=== PATIENT | male | born 1955 | race African-American/Black ===

== ENCOUNTER 2016-09-24 17:49 | Inpatient (IN) ==
[2016-09-24] MEDS ORDERED: ONDANSETRON 4 MG/2 ML VIAL IV STA (19:02)
[2016-09-24] MEDS ORDERED: methylPREDNISolone SOD SUC 125 MG/2 ML VIAL IV STA (19:02)
[2016-09-24] MEDS ORDERED: cefTRIAXone 1,000 MG in SODIUM CHLORIDE 0.9% 100 ML IV STA (19:02)
[2016-09-24] MEDS ORDERED: MORPHINE 2 MG/1 ML SYRINGE IV STA (19:02)
[2016-09-24 19:17] LABS: Basophils % 0.4 % (0.0-0.8); Eosinophils # 0.5 10*3/uL (0.0-0.87); Eosinophils % 5.5 % (0.00-10.9); Hematocrit 42.1 VOL% (42.0-52.0); Hemoglobin 14.2 GM/DL (14.0-18.0); Immature Granulocytes % 0.3 %; Immature Granulocytes Absolute 0.03 #; Lymphocytes # 1.4 10*3/uL (1.4-4.0); Lymphocytes % 14.3 % (21.2-54.2); Mean Corpuscular HGB Conc 33.7 GM/DL (32-36); Mean Corpuscular Hemoglobin 30 PG (27-34); Mean Corpuscular Volume 89.8 FL (87-102); Mean Platelet Volume 8.9 FL (9.6-12.0); Monocytes # 0.6 10*3/uL (0.11-0.8); Monocytes % 6.6 % (1.7-12.7); Neutrophils # 6.9 10*3/uL (1.4-7.4); Neutrophils % 72.9 % (38.7-73.9); Platelet Count 366 T/CUMM (130-400); Red Blood Count 4.69 MC/CUMM (3.8-5.5); Red Cell Distribution Width 11.5 % (9.3-17.3); White Blood Count 9.5 T/CUMM (4-12)
--- NOTE | 2016-09-24 19:17 | Emergency Department Note ---
Zeferino Vogel Manpreet, am scribing for, and in the presence of, Robert James MD 19:12. Erika Vogel Charles R, MD, personally performed the services described in this documentation, ascribed by Marck Mcgarry in my presence, and it is both accurate and complete 917 . Arrival - Arrival Chief Complaint: Nausea/Vomiting/Diarrhea Stated Complaint: SOB/diarrhea ED Nursing Triage Note: reports diarrhea and having some congestion.. pt takes chemo for lung cancer and had treatment last week. Mode of Arrival: Wheelchair Time Seen by Provider: 09/24/16 18:47 - History of Present Illness HPI Narrative: Pt is a 61 y/o male with PMHx of HTN and stage IV lung CA, who reports to the ED with CC of N/V/D, SOB, and Abd pain at since an unspecified time. Pt had chemotherapy for his lung CA last week with Dr. Garrison. Pt states he has had trouble breathing which has been getting worse. Pt reports smoking tobacco every day. Pt states he has also lost 3 pounds since last week. No other complaints/pains reported to ED. Consistency: constant Severity: moderate Severity scale (1-10): 4 Allergies/Adverse Reactions: Allergies Allergy/AdvReac Type Severity Reaction Status Date / Time No Known Allergies Allergy Verified 07/27/15 14:41 Home Medications: Home Medications Medication Instructions Recorded Confirmed Type Albuterol Sulfate [Ventolin HFA] 2 puff INH Q4-6H PRN 02/16/15 09/24/16 History HYDROcodone/ACETAMIN 10-325 [[place] 1 tablet PO Q4H PRN 02/16/15 09/24/16 History 10-325] Magnesium Oxide [Magox 400] 400 mg PO DAILY 02/16/15 09/24/16 History Diltiazem Cd Cap [Cardizem CD] 120 mg PO BID #60 capsule 07/31/15 09/24/16 Rx Apixaban [Eliquis] 5 mg PO BID 03/16/16 09/24/16 History Digoxin Tab [Lanoxin Tab] 0.125 mg PO DAILY 03/16/16 09/24/16 History Metoprolol Tartrate 50 mg PO DAILY 03/16/16 09/24/16 History Review of System - Review of System 12 point system: reviewed and no additional remarkable complaints except as stated - Review of System Constitutional: Absent: diaphoresis, fever Respiratory: Present: respiratory distress Gastrointestinal: Present: abdominal pain, nausea, vomiting, diarrhea. Absent: hematochezia Genitourinary male: Absent: dysuria, hematuria Musculoskeletal: Absent: arm pain, back pain, lower back pain, neck pain Neurological: Absent: headache Medical,Surgical,& Family Hx - Medical History Cardio: History of: Cardiac Dysrhythmia (a-fib), Hypertension Respiratory: History of: Lung Cancer (stage IV Sq Cell CA of lung) - Surgical History Thoracic Surgeries: Patient denies;: Organ Transplant Neurologic Surgeries: Patient denies: Neurologic Surgery - Social History Smoking Status: Current every day smoker Exam Vital Signs: Vital Signs Temperature 99.3 F 09/24/16 18:46 Pulse Rate 99 H 09/24/16 18:46 Respiratory Rate 16 09/24/16 18:46 Blood Pressure 112/72 09/24/16 18:46 O2 Sat by Pulse Oximetry 100 09/24/16 17:51 - General General appearance: alert, in no apparent distress - Head Head exam: Present: atraumatic, other (Temporal Wasting) - Eye Eye exam: Present: normal appearance, PERRL, EOMI - ENT ENT exam: Present: normal exam, normal oropharynx, mucous membranes moist, TM's normal bilaterally - Neck Neck exam: Present: normal inspection, full ROM, trachea midline. Absent: tenderness - Chest Chest inspection: Present: normal inspection, symmetric chest wall rise. Absent : tenderness - Respiratory Respiratory exam: Present: accessory muscle use, wheezes, other (Decreased breath sounds on right side). Absent: normal lung sounds bilaterally - Cardiovascular Cardiovascular exam: Present: regular rate, normal rhythm, normal heart sounds - Abdominal Exam Abdominal exam: Present: soft, diminished bowel sounds. Absent: distention, tenderness - Extremities Exam Extremities exam: Present: normal inspection, full ROM. Absent: tenderness, pedal edema - Back Exam Back exam: Present: normal inspection, full ROM. Absent: tenderness - Neurological Exam Neurological exam: Present: alert, oriented X3, CN II-XII intact, reflexes normal - Psychiatric Psychiatric exam: Present: normal affect - Skin Skin exam: Present: warm, dry, intact. Absent: rash, pallor Course - Reevaluation(s) Reevaluation #1: Patient symptoms have improved blood pressure is much better chest pain is gone shortness breath is markedly improved patient has no nausea vomiting since she has been here Time: 21:57 - Consultations Consultation #1: Dr. Jameson will admit patient for Dr. Garrison said the put him on the cancer floor no telemetry bed needed Time: 21:54 Results - Labs CBC & BMP: 09/24/16 18:39 09/24/16 18:39 Lab Results: I have reviewed the patients labs Labs: Laboratory Tests 09/24/16 09/24/16 18:39 18:39 WBC 9.5 RBC 4.69 Hgb 14.2 Hct 42.1 MCV 89.8 MPV 8.9 L Lymph % (Auto) 14.3 L INR 1.2 PT Patient/Control Mix 12.7 Laboratory Tests 09/24/16 18:39 Sodium 132 L Potassium 3.4 L Chloride 96 L Carbon Dioxide 28 BUN 45 H BUN/Creatinine Ratio 34.00 H Glucose 119 H Troponin I 0.088 H Total Protein 5.9 L Albumin 2.9 L Albumin/Globulin Ratio 0.9 L Laboratory Tests 09/24/16 09/24/16 09/24/16 18:39 18:39 18:39 WBC 9.5 RBC 4.69 Hgb 14.2 Hct 42.1 MCV 89.8 MPV 8.9 L Lymph % (Auto) 14.3 L INR 1.2 PT Patient/Control Mix 12.7 Sodium 132 L Potassium 3.4 L Chloride 96 L BUN 45 H BUN/Creatinine Ratio 34.00 H Glucose 119 H Troponin I 0.088 H B-Natriuretic Peptide Total Protein 5.9 L Albumin 2.9 L Albumin/Globulin Ratio 0.9 L Digoxin 09/24/16 09/24/16 18:39 18:39 WBC RBC Hgb Hct MCV MPV Lymph % (Auto) INR PT Patient/Control Mix Sodium Potassium Chloride BUN BUN/Creatinine Ratio Glucose Troponin I B-Natriuretic Peptide 45 Total Protein Albumin Albumin/Globulin Ratio Digoxin 0.60 L Laboratory Tests 09/24/16 18:39 Amylase 161 H Lipase 500.0 H - Diagnostic Findings Procedure: Chest x-ray: report reviewed by me (No acute cardiopulmonary process. Resolution of the airspace opacity within the left infrahilar region. Similar apperaence of the probable known lung carcinoma in the right lung apex and and diffuse interstitial scarring.), CT Abdomen and Pelvis: pending, X-ray: report reviewed by me (X-ray Abd: No acute radiographic abnormality in the abdomen.) Disposition Clinical Impression: Gastroenteritis, COPD (chronic obstructive pulmonary disease), Squamous cell carcinoma of lung, stage IV, Drug-induced nausea and vomiting, Pancreatitis, Atypical chest pain, Elevated troponin Case discussed with: patient Disposition: Still a Patient Condition: Stable Time of Disposition: 21:57
[2016-09-24 19:22] LABS: INR 1.2; PT Patient Result 12.7 SECS
[2016-09-24] MEDS ORDERED: cefTRIAXone 1,000 MG VIAL ONE (19:29)
[2016-09-24] MEDS ORDERED: ONDANSETRON 4 MG/2 ML VIAL ONE (19:29)
[2016-09-24 19:30] LABS: Albumin 2.9 G/DL (3.4-5.0); Bilirubin,Total 0.7 MG/DL (0.2-1.0); Calcium 8.7 MG/DL (8.5-10.1); Magnesium 2.1 MG/DL (1.8-2.4); Osmolality,Calculated 276.5 MOS/KG (273-304); Potassium 3.4 MMOL/L (3.5-5.1); Total Protein 5.9 G/DL (6.4-8.3)
[2016-09-24] MEDS ORDERED: MORPHINE 2 MG/1 ML SYRINGE ONE (19:30)
[2016-09-24] MEDS ORDERED: methylPREDNISolone SOD SUC 125 MG/2 ML VIAL ONE (19:30)
[2016-09-24 19:37] LABS: Troponin I Only 0.088 NG/ML (0.00-0.045)
--- NOTE | 2016-09-24 19:43 | EKG Report ---
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
--- NOTE | 2016-09-24 20:49 | XRay Report ---
Exam: XR chest 1V portable Indication: History of lung cancer, Shortness of breath Comparison study: 09/06/2015 chest radiograph and 08/06/[address] Findings: Lungs are mildly hyperexpanded with central interstitial prominence suggesting a degree of underlying scarring. Right chest Mediport is noted in position. The Mediport overlies a focal lesion, likely representing the patient's known lung cancer, which appears grossly unchanged from prior. The heart, mediastinum and bony structures are stable from prior. There is no focal consolidation, pneumothorax or pleural effusion identified. The area of focal consolidation previously noted within the lingula/left infrahilar region is no longer visualized. Impression: No acute cardiopulmonary process. Resolution of the airspace opacity within the left infrahilar region. Similar appearance of probable known lung carcinoma in the right lung apex and diffuse interstitial scarring. PROCEDURE INTERPRETED AT [facility] DEPARTMENT OF RADIOLOGY Final Report Signed by: Rylan Roman
--- NOTE | 2016-09-24 20:55 | XRay Report ---
XR abdomen, 2 views Clinical Information: Abdominal Pain nausea, vomiting Comparison: 09/06/2015 Findings: Bowel gas pattern is nonspecific and within normal limits. No abnormally dilated small bowel loops are identified to suggest obstruction. There is no free air identified. Scattered fecal material is noted throughout colon, which is otherwise nondilated. No abnormal focal soft tissue masses or calcific densities are identified in the abdomen or pelvis. Lung bases appear predominantly clear. There is no acute osseous abnormality. No suspicious osseous lesions are identified. Mild degenerative changes of the lumbosacral junction are suspected. Impression: No acute radiographic abnormality in the abdomen. PROCEDURE INTERPRETED AT [facility] DEPARTMENT OF RADIOLOGY Final Report Signed by: Rylan Roman
[2016-09-24 21:02] LABS: Apearance,Urine CLEAR (Clear); Bilirubin,Urine Negative (Negative); Blood, Urine Negative (Negative); Glucose,Urine (UA) Negative (Negative); Granular Casts,Urine 8 /LPF (0-1); Hyaline Casts,Urine 15 /LPF (0-3); Ketones,Urine Negative (Negative); Mucus,Urine Few /LPF (Occasional); Nitrite,Urine Negative (Negative); Protein,Urine 30 MG/DL; RBC,Urine 1 /HPF (0-4); Urine Color Amber (Yellow); Urine Specific Gravity 1.028 (1.001-1.035); Urine Urobilinogen < 2.0 EU/DL (0.2-1.0); WBC,Urine 2 /HPF (0-6)
[2016-09-24 21:28] LABS: Troponin I Only 0.101 NG/ML (0.00-0.045)
[2016-09-24] MEDS ORDERED: ACETAMINOPHEN 325 MG TABLET PO PRN (22:43)
[2016-09-24] MEDS ORDERED: chlorproMAZINE 25 MG TABLET PO PRN (22:43)
[2016-09-24] MEDS ORDERED: MYLANTA/LIDO VISC 2:1 300 ML BOTTLE SWISH/SPIT PRN (22:43)
[2016-09-24] MEDS ORDERED: diphenhydrAMINE CAP 25 MG CAPSULE PO PRN (22:43)
[2016-09-24] MEDS ORDERED: MYLANTA/LIDO VISC 2:1 300 ML BOTTLE SWISH/SWAL PRN (22:43)
[2016-09-24] MEDS ORDERED: PROMETHAZINE INJ 25 MG in SODIUM CHLORIDE 0.9% 50 ML IV PRN (22:43)
[2016-09-24] MEDS ORDERED: LACTULOSE 20 GM/30 ML UDCUP PO PRN (22:43)
[2016-09-24] MEDS ORDERED: LOPERAMIDE 2 MG CAPSULE PO PRN ×2 (22:43)
[2016-09-24] MEDS ORDERED: traMADol 50 MG TABLET PO PRN (22:43)
[2016-09-24] MEDS ORDERED: ALUMINUM/MAGNES/SIMETH MAX STR 30 ML UDCUP PO PRN (22:43)
[2016-09-24] MEDS ORDERED: ALBUTEROL 2.5 MG/3 ML NEB RESP TX PRN (22:43)
[2016-09-24] MEDS ORDERED: MAGNESIUM HYDROXIDE SUSP 30 ML UDCUP PO PRN (22:43)
[2016-09-24] MEDS ORDERED: BENZTROPINE 2 MG/2 ML AMP IV PRN (22:43)
[2016-09-24] MEDS ORDERED: TEMAZEPAM 7.5 MG CAPSULE PO PRN (22:43)
[2016-09-24] MEDS ORDERED: chlorproMAZINE INJ 25 MG in SODIUM CHLORIDE 0.9% 100 ML IV PRN (22:43)
[2016-09-24] MEDS ORDERED: guaiFENesin 200 MG/10 ML UDCUP PO PRN (22:43)
[2016-09-24] MEDS ORDERED: chlorproMAZINE INJ 50 MG in SODIUM CHLORIDE 0.9% 100 ML IV PRN (22:43)
[2016-09-24] MEDS ORDERED: ONDANSETRON 4 MG/2 ML VIAL IV PRN (22:43)
[2016-09-24] MEDS ORDERED: ALPRAZolam 0.25 MG TABLET PO PRN (22:43)
[2016-09-24] MEDS: SODIUM CHLORIDE 0.9% 1,000 ML IV SCH (23:01)
[2016-09-25 00:05] LABS: Basophils % 0.2 % (0.0-0.8); Eosinophils % 0.2 % (0.00-10.9); Hematocrit 43.4 VOL% (42.0-52.0); Hemoglobin 14.1 GM/DL (14.0-18.0); Immature Granulocytes % 0.5 %; Immature Granulocytes Absolute 0.07 #; Lymphocytes # 0.5 10*3/uL (1.4-4.0); Lymphocytes % 3.4 % (21.2-54.2); Mean Corpuscular HGB Conc 32.5 GM/DL (32-36); Mean Corpuscular Hemoglobin 30 PG (27-34); Mean Corpuscular Volume 93.1 FL (87-102); Mean Platelet Volume 8.6 FL (9.6-12.0); Monocytes # 0.1 10*3/uL (0.11-0.8); Monocytes % 0.7 % (1.7-12.7); Neutrophils # 14.4 10*3/uL (1.4-7.4); Platelet Count 365 T/CUMM (130-400); Red Blood Count 4.66 MC/CUMM (3.8-5.5); Red Cell Distribution Width 11.7 % (9.3-17.3); White Blood Count 15.1 T/CUMM (4-12)
[2016-09-25 00:21] LABS: Albumin 2.8 G/DL (3.4-5.0); Bilirubin,Total 0.6 MG/DL (0.2-1.0); Calcium 8.1 MG/DL (8.5-10.1); Magnesium 2.1 MG/DL (1.8-2.4); Potassium 3.9 MMOL/L (3.5-5.1); Total Protein 5.3 G/DL (6.4-8.3); Uric Acid 4.3 MG/DL (3.5-7.2)
[2016-09-25 00:24] LABS: Troponin I Only 0.105 NG/ML (0.00-0.045)
[2016-09-25 03:44] LABS: Lymphocytes 3 % (20-55); Platelet Estimate Normal; Segmented Neutrophils 97 % (50-85); Total Cells Counted 100
[2016-09-25] MEDS: methylPREDNISolone SOD SUC 40 MG/1 ML VIAL IV SCH ×3 (04:11→20:33)
[2016-09-25] MEDS: ALBUTEROL/IPRATROPIUM 3 ML NEB RESP TX PRN ×2 (07:30→15:41)
[2016-09-25] MEDS ORDERED: PANTOPRAZOLE 40 MG VIAL IV SCH (09:00)
--- NOTE | 2016-09-25 09:38 | Oncology History&Physical ---
Assessment and Plan (1) Squamous cell carcinoma of lung, stage IV Status: Acute Assessment and plan: We will monitor closely for symptoms of pancreatitis. The patient is receiving IV fluids. Analgesia is ordered as needed. He is also receiving intravenous steroids and nebulized albuterol for his wheezing and shortness of breath. Current Visit: Yes History of Present Illness Chief complaint: Diarrhea and weakness History of present illness: Mr. Abdirashid Patton is a 61 year old male With a grade 2 year history of squamous cell carcinoma with bilateral lung involvement. The patient has received chest irradiation previously for painful bony metastasis. He is admitted with shortness of breath wheezing failure to thrive and diarrhea. He has evidence of elevated pancreatic enzymes as well. He is still continuing to smoke. He denies EtOH. Chest x-ray revealed no acute process. His last CT scan from July did show evidence of progression. He has been maintained up to this point on immunotherapy with I believe a every 2 weeks. He has received this medicine for multiple months Home Medications Medication Instructions Recorded Confirmed Type Albuterol Sulfate [Ventolin HFA] 2 puff INH Q4-6H PRN 02/16/15 09/25/16 History HYDROcodone/ACETAMIN 10-325 [[place] 1 tablet PO Q4H PRN 02/16/15 09/25/16 History 10-325] Magnesium Oxide [Magox 400] 400 mg PO DAILY 02/16/15 09/25/16 History Diltiazem Cd Cap [Cardizem CD] 120 mg PO BID #60 capsule 07/31/15 09/25/16 Rx Apixaban [Eliquis] 5 mg PO BID 03/16/16 09/25/16 History Digoxin Tab [Lanoxin Tab] 0.125 mg PO DAILY 03/16/16 09/25/16 History Metoprolol Tartrate 50 mg PO DAILY 03/16/16 09/25/16 History Allergies Allergy/AdvReac Type Severity Reaction Status Date / Time No Known Allergies Allergy Verified 07/27/15 14:41 Medical,Surgical,& Family Hx - Medical History Cardio: History of: Cardiac Dysrhythmia (a-fib), Hypertension Respiratory: History of: Lung Cancer (stage IV Sq Cell CA of lung) Gastrointestinal: History of: GI Problems (diarrhea) - Surgical History Thoracic Surgeries: Patient denies;: Organ Transplant Neurologic Surgeries: Patient denies: Neurologic Surgery Abdominal Surgeries: Patient denies: Abdominal Surgery Reproductive Surgeries: Patient denies;: Genitourinary Surgery - Social History Smoking Status: Current every day smoker Frequency of Alcohol Use: None Type of Drug Use: None - Constitutional Constitutional: Present: malaise, weakness, weight loss. Absent: increased appetite, weight gain - EENT Eye: Absent: diplopia, loss of vision Ears: Absent: tinnitus Nose, mouth and throat: Present: sore throat. Absent: dizziness, dysphagia, epistaxis, vertigo - Cardiovascular Cardiovascular ROS IM: Absent: edema, orthopnea - Respiratory Respiratory: Present: dyspnea, wheezing. Absent: hemoptysis - Gastrointestinal Gastrointestinal: Present: diarrhea - Genitourinary Genitourinary ROS male: Absent: hematuria Exam - Constitutional Vitals: Period Temp Pulse Resp BP Sys/[place] Pulse Ox Last 24 Hr 97.2 F-98 F 66-85 18-20 83-127/56-67 94-99 General appearance: no acute distress, under weight - Head Head Exam: Present: normal inspection, normocephalic, atraumatic - Eye Eye Exam: Present: EOMI. Absent: conjunctival injection, periorbital swelling, scleral icterus Pupils: Present: PERRL - ENT ENT exam: Present: normal external ear exam - Neck Neck exam: Present: normal inspection. Absent: lymphadenopathy, tenderness - Respiratory Respiratory exam: Present: wheezes. Absent: accessory muscle use, decreased breath sounds - Cardiovascular Cardiovascular exam: Present: RRR - GI/Abdominal GI/Abdominal exam: Present: ascites. Absent: distended, guarding - Extremities Exam Extremities exam: Absent: edema - Neurological Exam Neurological exam: Present: alert, oriented X3 Results - Labs CBC & BMP: 09/24/16 23:34 09/24/16 23:34
[2016-09-25] MEDS: DILTIAZEM CD 120 MG CAPSULE PO SCH (09:43)
[2016-09-25] MEDS: METOPROLOL TARTRATE 50 MG TABLET PO SCH (09:43)
[2016-09-25] MEDS: DIGOXIN 0.125 MG TABLET PO SCH (09:43)
[2016-09-25] MEDS: ASPIRIN EC 81 MG TABLET PO SCH (09:44)
[2016-09-25] MEDS: APIXABAN 5 MG TABLET PO SCH ×2 (09:44→20:36)
[2016-09-25] MEDS: MAGNESIUM OXIDE 400 MG TABLET PO SCH (09:44)
--- NOTE | 2016-09-25 11:18 | XRay Report ---
History: Abdominal pain. History of lung cancer Date: 09/25/2016 Study: Flat and erect abdomen Comparison exam: 09/24/2016 There is no evidence of pneumoperitoneum. The bowel gas pattern is nonobstructive without gross mass lesion. Some scattered stool and air are noted in the normal caliber colon. Small fluid levels are noted in large and small bowel on the upright view. No radiopaque calculi are seen. There is moderate lumbar spondylosis. There is some occasional mild degenerative disc narrowing of the lumbar spine. Impression: No acute abdominal process. No adverse interval change PROCEDURE INTERPRETED AT [facility] DEPARTMENT OF RADIOLOGY Final Report Signed by: Dr. Ángela Lewis
--- NOTE | 2016-09-25 12:18 | XRay Report ---
XR chest 2V Indication: Shortness of breath Comparison: 25 Sep 2016 Findings: The heart and mediastinum are stable in size and configuration. Right subclavian Port-A-Cath is unchanged in position. The pulmonary vascularity is normal in caliber. Increased right upper lobe density posterior to Port-A-Cath is slightly more prominent. No other lung infiltrates, effusions, pneumothorax or other abnormality is demonstrated. Impression: Slight increased right upper lobe density posterior to the Port-A-Cath when compared to previous exam. CT may be useful to further evaluate this area. PROCEDURE INTERPRETED AT [facility] DEPARTMENT OF RADIOLOGY Final Report Signed by: Dr. Dax Garcia
[2016-09-25] MEDS: SODIUM CHLORIDE 0.9% 1,000 ML IV SCH (12:23)
[2016-09-26] MEDS: SODIUM CHLORIDE 0.9% 1,000 ML IV SCH ×2 (00:50→14:12)
[2016-09-26] MEDS: DILTIAZEM CD 120 MG CAPSULE PO SCH ×2 (01:45→11:45)
[2016-09-26] MEDS: ALBUTEROL/IPRATROPIUM 3 ML NEB RESP TX PRN ×2 (04:10→13:54)
[2016-09-26] MEDS: methylPREDNISolone SOD SUC 40 MG/1 ML VIAL IV SCH ×3 (04:49→20:20)
--- NOTE | 2016-09-26 06:57 | Oncology Progress Note ---
Assessment and Plan (1) Diarrhea Status: Acute Current Visit: Yes (2) COPD (chronic obstructive pulmonary disease) Status: Acute Current Visit: Yes (3) Squamous cell carcinoma of lung, stage IV Status: Acute Current Visit: Yes (4) Drug-induced nausea and vomiting Status: Acute Current Visit: Yes (5) Pancreatitis Status: Acute Current Visit: Yes Oncology Subjective PN Interval history: Mr. Mendenhall is a 61-year-old black male with advanced lung cancer. He was admitted with failure to thrive and diarrhea. His diarrhea remains persistent. We will try to send this off for C. difficile testing but I will go ahead and place him on twice daily Lomotil. We are using Imodium as needed. I will recheck his electrolytes in the morning. Overall he states his strength has improved with IV fluids. I encouraged him to ambulate around the room and try to sit in the chair today. Exam - Constitutional Vitals: Period Temp Pulse Resp BP Sys/[place] Pulse Ox Last 24 Hr 96.7 F-98.5 F 56-74 16-20 87-116/58-69 93-99 General appearance: normal weight, no acute distress - Head Head Exam: Present: normocephalic, atraumatic - Neck Neck exam: Absent: lymphadenopathy, thyromegaly - Respiratory Respiratory exam: Present: CTAB. Absent: wheezes - Cardiovascular Cardiovascular exam: Present: RRR. Absent: irregular rhythm, JVD - GI/Abdominal GI/Abdominal exam: Present: soft. Absent: ascites, distended, firm, mass - Neurological Exam Neurological exam: Present: alert, oriented X3 Results - Labs CBC & BMP: 09/24/16 23:34 09/24/16 23:34 Lab Results: I have reviewed the past 24 hour labs
[2016-09-26] MEDS: DIPHENOXYLATE/ATROPINE 2.5-0.025 MG TABLET PO SCH ×2 (08:40→20:19)
[2016-09-26] MEDS: ASPIRIN EC 81 MG TABLET PO SCH (08:40)
[2016-09-26] MEDS: APIXABAN 5 MG TABLET PO SCH ×2 (08:41→20:19)
[2016-09-26] MEDS: MAGNESIUM OXIDE 400 MG TABLET PO SCH (08:41)
[2016-09-26] MEDS: DIGOXIN 0.125 MG TABLET PO SCH (11:45)
[2016-09-26] MEDS: METOPROLOL TARTRATE 50 MG TABLET PO SCH (11:45)
[2016-09-27] MEDS: SODIUM CHLORIDE 0.9% 1,000 ML IV SCH (03:39)
[2016-09-27] MEDS: methylPREDNISolone SOD SUC 40 MG/1 ML VIAL IV SCH (03:43)
[2016-09-27] MEDS: DILTIAZEM CD 120 MG CAPSULE PO SCH ×2 (05:33→08:58)
[2016-09-27 05:35] LABS: Albumin 2.3 G/DL (3.4-5.0); Bilirubin,Total 0.8 MG/DL (0.2-1.0); Calcium 7.5 MG/DL (8.5-10.1); Magnesium 2.2 MG/DL (1.8-2.4); Osmolality,Calculated 282.4 MOS/KG (273-304); Potassium 3.6 MMOL/L (3.5-5.1); Total Protein 4.2 G/DL (6.4-8.3)
[2016-09-27] MEDS: ALBUTEROL/IPRATROPIUM 3 ML NEB RESP TX PRN (07:10)
[2016-09-27 08:02] VITALS: BP 121/72
[2016-09-27] MEDS: ASPIRIN EC 81 MG TABLET PO SCH (08:57)
[2016-09-27] MEDS: DIPHENOXYLATE/ATROPINE 2.5-0.025 MG TABLET PO SCH (08:57)
[2016-09-27] MEDS: APIXABAN 5 MG TABLET PO SCH (08:58)
[2016-09-27] MEDS: DIGOXIN 0.125 MG TABLET PO SCH (08:58)
[2016-09-27] MEDS: METOPROLOL TARTRATE 50 MG TABLET PO SCH (08:59)
[2016-09-27] MEDS: MAGNESIUM OXIDE 400 MG TABLET PO SCH (08:59)
--- NOTE | 2016-09-27 09:25 | Discharge Summary ---
Hospital Course - Hospital Course Hospital Course: Mr. Mendenhall is a 61-year-old black male with advanced lung cancer being followed by Dr. Garrison and treated with immunotherapy. He was admitted with lethargy and diarrhea. He was placed on IV fluids and steroids. He improved significantly over the first 2 days of admission and is ready for discharge home today. I will send him home with a steroid taper due to his recent immunotherapy and his current symptoms of diarrhea. Also send him home with Lomotil to take as needed. He will keep his appointments scheduled with Dr. Garrison for routine follow-up. I will defer outpatient oncology care recommendations to his primary oncologist. - Time spent with patient Time with patient DS: Greater than 30 minutes Diagnosis - Discharge Diagnosis (1) Diarrhea Status: Acute (2) COPD (chronic obstructive pulmonary disease) Status: Acute (3) Squamous cell carcinoma of lung, stage IV Status: Acute (4) Drug-induced nausea and vomiting Status: Acute (5) Pancreatitis Status: Acute Specialty Discharge - Follow Up or Referrals Follow up with: Villa Garrison MD [Primary Care Provider] - (Keep previously scheduled appointment with Dr. Garrison.) Discharge Plan - Discharge Data Disposition: Disch To Home/Self Care Condition at Discharge: Stable Discharge Diet: advance to your usual diet Activity: resume usual activities as tolerated Hygiene: no restrictions - Discharge Medications New Diphenoxylate/Atrop 2.5-0.025 [Lomotil Tab] 1 tablet PO Q4HR PRN #15 tablet PRN Reason: Diarrhea Dexamethasone Tab [Decadron Tab] 4 mg PO BID #3 tablet Continue HYDROcodone/ACETAMIN 10-325 [[place] 10-325] 1 tablet PO Q4H PRN PRN Reason: Pain Magnesium Oxide [Magox 400] 400 mg PO DAILY Albuterol Sulfate [Ventolin HFA] 2 puff INH Q4-6H PRN PRN Reason: Shortness Of Breath Diltiazem Cd Cap [Cardizem CD] 120 mg PO BID #60 capsule Metoprolol Tartrate 50 mg PO DAILY Digoxin Tab [Lanoxin Tab] 0.125 mg PO DAILY Apixaban [Eliquis] 5 mg PO BID - Follow Up or Referral Follow Up: Villa Garrison MD [Primary Care Provider] - (Keep previously scheduled appointment with Dr. Garrison.) - Forms/Instructions Exam - Constitutional Vitals: Period Temp Pulse Resp BP Sys/[place] Pulse Ox Last 24 Hr 98 F-99.0 F 57-89 17-20 89-121/55-72 95-100 Discharge Results Labs on day of discharge: Labs from last 24 hours 09/27/16 04:00 Sodium 140 Potassium 3.6 Chloride 111 H Carbon Dioxide 21 Anion Gap 11.6 BUN 25 H Creatinine 0.80 GFR Calculation 106 BUN/Creatinine Ratio 31.00 H Glucose 96 Calculated Osmolality 282.4 Calcium 7.5 L Magnesium 2.2 Total Bilirubin 0.80 AST 26 ALT 43 Alkaline Phosphatase 57 Total Protein 4.2 L Albumin 2.3 L Globulin 1.9 L Albumin/Globulin Ratio 1.2 Preliminary micro results at discharge 09/24/16 23:34 Blood Culture - Preliminary Blood No growth at 1 day DS: Provider Date of admission: 09/24/16 22:01 Primary care physician: Villa Garrison MD Attending physician on admission: Villa Garrison MD Consults: 09/24/16 23:25 Consult to Dietitian [CONS] Routine Reason for Dietitian: Dietary Consult Consult to Pastoral Services [CONS] Routine Comment: Pastoral Screen: Request Envelope Adjuster Visit Discharging clinician: Maciej Mota MD
[2016-09-27] MEDS ORDERED: HEPARIN LOCK FLUSH 500 UNIT/5 ML SYRINGE IV PRN (09:45)
== END 2016-09-27 11:20 | disposition home or self-care (01) | DRG 392 ==
LOC: N.ED 17:49 → N.EDINP 22:01 → N.4E 22:38
PROVIDERS: ADMIT Specialist; ATTEND Specialist

== ENCOUNTER 2016-10-25 16:23 | Inpatient (IN) ==
[2016-10-25] MEDS ORDERED: FUROSEMIDE 100 MG/10 ML VIAL IV STA (17:16)
[2016-10-25] MEDS ORDERED: ONDANSETRON 4 MG/2 ML VIAL IV STA (17:16)
[2016-10-25] MEDS ORDERED: methylPREDNISolone SOD SUC 125 MG/2 ML VIAL IV STA (17:16)
[2016-10-25] MEDS ORDERED: SODIUM CHLORIDE 0.9% 500 ML IV STA (17:16)
[2016-10-25] MEDS ORDERED: ALBUTEROL 2.5 MG/3 ML NEB RESP TX SCH (17:30)
--- NOTE | 2016-10-25 18:02 | EKG Report ---
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
--- NOTE | 2016-10-25 18:08 | Emergency Department Note ---
INadine Emily, am scribing for, and in the presence of, Robert James MD 17: 42. Erika Vogel Charles R, MD, personally performed the services described in this documentation, ascribed by Nadege Mccoy in my presence, and it is both accurate and complete [id number] . Arrival - Arrival Chief Complaint: Upper Respiratory Stated Complaint: foot and sob ED Nursing Triage Note: C/O HAVING SOB SINCE WED., + COUGHING, + CONGESTION , + WHEEZING AT TIME OF TRIAGE., DENIES HAVING INCEASE TEMP., DENIES NAUSEA., ALSO C /O HAVING SWELLING TO THE LEFT LEG SINCE WEDNESDAY, PITTING EDEMA NOTED., PATIENT WEARING COMPRESSION STOCKING AT TIME OF TRIAGE., PATIENT CURRENTLY BEING TREATED FOR LUNG CANCER, LAST CHEMO WAS ONE MONTH AGO Mode of Arrival: Wheelchair Limitations: No Limitations Source: Patient Time Seen by Provider: 10/25/16 16:58 - History of Present Illness HPI Narrative: Pt is a 61 y/o male who came to ED with c/o SOB and pedal edema that started Wednesday and has worsened. Pt notes putting stockings on yesterday on his legs due to pain and swelling. Pt is currently under supervision of Dr. Garrison for Lung CA, in which all tx have been stopped for the moment. His last chemo tx was one month ago. Pt is still smoking and takes Eliquis daily. He denies ETOH usage, "for awhile now." Pt does not have at home O2. Onset (ago): day(s) Consistency: constant Severity: moderate Severity scale (1-10): 7 Quality: aching, fullness Allergies/Adverse Reactions: Allergies Allergy/AdvReac Type Severity Reaction Status Date / Time No Known Allergies Allergy Verified 10/25/16 16:35 Home Medications: Home Medications Medication Instructions Recorded Confirmed Type Albuterol Sulfate [Ventolin HFA] 2 puff INH Q4-6H PRN 02/16/15 10/25/16 History HYDROcodone/ACETAMIN 10-325 [[place] 1 tablet PO Q4H PRN 02/16/15 10/25/16 History 10-325] Magnesium Oxide [Magox 400] 400 mg PO DAILY 02/16/15 10/25/16 History Diltiazem Cd Cap [Cardizem CD] 120 mg PO BID #60 capsule 07/31/15 10/25/16 Rx Apixaban [Eliquis] 5 mg PO BID 03/16/16 10/25/16 History Digoxin Tab [Lanoxin Tab] 0.125 mg PO DAILY 03/16/16 10/25/16 History Metoprolol Tartrate 50 mg PO DAILY 03/16/16 10/25/16 History Diphenoxylate/Atrop 2.5-0.025 1 tablet PO Q4HR PRN #15 tablet 09/27/16 10/25/16 Rx [Lomotil Tab] MDD 4 TABLET/24H fentaNYL 50 MCG/HR PATCH 1 patch TRANSDERM Q3DAY 10/25/16 10/25/16 History [Duragesic 50 Patch] predniSONE TAB [PredniSONE] 40 mg PO DAILY 10/25/16 10/25/16 History Review of System - Review of System 12 point system: reviewed and no additional remarkable complaints except as stated - Review of System Constitutional: Absent: chills, fever Head/Ears/Nose/Throat: Absent: nasal drainage Respiratory: Present: respiratory distress (SOB), wheezing. Absent: cough Cardiovascular: Absent: chest pain Gastrointestinal: Absent: abdominal pain, nausea, vomiting Musculoskeletal: Present: leg pain (both and swelling). Absent: arm pain, back pain, neck pain Skin: Absent: rash Neurological: Absent: headache Medical,Surgical,& Family Hx - Medical History Cardio: History of: Cardiac Dysrhythmia (a-fib), Hypertension Respiratory: History of: Lung Cancer (stage IV Sq Cell CA of lung) Gastrointestinal: History of: GI Problems (diarrhea) - Surgical History Surgical History: noncontributory Thoracic Surgeries: Patient denies;: Organ Transplant Neurologic Surgeries: Patient denies: Neurologic Surgery Abdominal Surgeries: Patient denies: Abdominal Surgery Reproductive Surgeries: Patient denies;: Genitourinary Surgery - Family History Family History: noncontributory - Social History Smoking Status: Current every day smoker Frequency of Alcohol Use: None Type of Drug Use: None Functional capacity: independent ambulation Exam Vital Signs: Vital Signs Temperature 98.3 F 10/25/16 16:31 Pulse Rate 89 10/25/16 18:30 Respiratory Rate 23 10/25/16 18:31 Blood Pressure 82/61 10/25/16 17:00 O2 Sat by Pulse Oximetry 98 10/25/16 18:30 - General General appearance: alert, in no apparent distress, other (thin, emancipated; temporal wasting) - Head Head exam: Present: atraumatic, normocephalic - Eye Eye exam: Present: PERRL, EOMI - Neck Neck exam: Present: full ROM. Absent: tenderness - Chest Chest inspection: Present: symmetric chest wall rise. Absent: tenderness - Respiratory Respiratory exam: Present: rhonchi (coarse), wheezes. Absent: normal lung sounds bilaterally (decreased) - Cardiovascular Cardiovascular exam: Present: regular rate, normal rhythm, normal heart sounds - Abdominal Exam Abdominal exam: Present: soft. Absent: distention (3rd spacing ), tenderness, guarding, rebound - Extremities Exam Extremities exam: Present: full ROM, tenderness (bilateral from knees down), pedal edema (+2). Absent: calf tenderness - Neurological Exam Neurological exam: Present: alert, oriented X3, CN II-XII intact. Absent: motor sensory deficit - Psychiatric Psychiatric exam: Present: normal affect, normal mood - Skin Skin exam: Present: warm, dry Course - Consultations Consultation #1: Dr Meng will admit for Dr Garrison Time: 21:48 Results - Labs CBC & BMP: 10/25/16 17:55 10/25/16 17:55 Lab Results: I have reviewed the patients labs Labs: Laboratory Tests 10/25/16 17:55 RBC 3.70 L Hgb 11.4 L Hct 33.6 L MPV 8.2 L Neut % (Auto) 94.6 H Lymph % (Auto) 3.5 L [place] % (Auto) 1.6 L Neut # (Auto) 8.8 H Lymph # (Auto) 0.3 L Laboratory Tests 10/25/16 17:55 Total Counted 100 Segmented Neutrophils 97 H Lymphocytes 3 L Platelet Estimate Adequate Laboratory Tests 10/25/16 10/25/16 10/25/16 17:55 17:55 17:55 Magnesium 1.1 L Troponin I 0.080 H B-Natriuretic Peptide 115 H Digoxin 0.40 L Laboratory Tests 10/25/16 10/25/16 17:55 17:55 Potassium 3.4 L Anion Gap 15.4 H BUN/Creatinine Ratio 22.00 H Glucose 157 H Calcium 8.1 L Total Protein 5.4 L Albumin 3.2 L Globulin 2.2 L Urine Color Yellow Urine Appearance Clear Urine pH 5.0 Ur Specific [place] 1.017 Urine Protein 30 Urine Blood Negative Urine Urobilinogen < 2.0 H Urine Leukocytes Negative Urine RBC 1 Urine WBC 2 Urine Mucus Occasional - Diagnostic Findings Procedure: Chest x-ray: report reviewed by me (Chronic hyperexpansion of the lungs and emphysematous changes appears similar to prior. No definite acute acute cardiac pulmonary process. Slight worsening of the right upper lobe soft tissue lesion likely representing residual/recurrent malignancy. Correlate with CT of the chest as needed.) Disposition Clinical Impression: COPD (chronic obstructive pulmonary disease), Squamous cell carcinoma of lung, stage IV, Atrial flutter, Hypomagnesemia, Hypotension, Bronchitis Case discussed with: patient Disposition: Still a Patient Condition: Stable Time of Disposition: 21:50
[2016-10-25 18:09] LABS: Basophils % 0.1 % (0.0-0.8); Hematocrit 33.6 VOL% (42.0-52.0); Hemoglobin 11.4 GM/DL (14.0-18.0); Immature Granulocytes % 0.2 %; Immature Granulocytes Absolute 0.02 #; Lymphocytes # 0.3 10*3/uL (1.4-4.0); Lymphocytes % 3.5 % (21.2-54.2); Mean Corpuscular HGB Conc 33.9 GM/DL (32-36); Mean Corpuscular Hemoglobin 31 PG (27-34); Mean Corpuscular Volume 90.8 FL (87-102); Mean Platelet Volume 8.2 FL (9.6-12.0); Monocytes # 0.2 10*3/uL (0.11-0.8); Monocytes % 1.6 % (1.7-12.7); Neutrophils # 8.8 10*3/uL (1.4-7.4); Neutrophils % 94.6 % (38.7-73.9); Platelet Count 225 T/CUMM (130-400); Red Cell Distribution Width 13.1 % (9.3-17.3); White Blood Count 9.3 T/CUMM (4-12)
[2016-10-25] MEDS ORDERED: methylPREDNISolone SOD SUC 125 MG/2 ML VIAL ONE (18:09)
[2016-10-25] MEDS ORDERED: ONDANSETRON 4 MG/2 ML VIAL ONE (18:09)
[2016-10-25] MEDS ORDERED: FUROSEMIDE 20 MG/2 ML VIAL ONE (18:09)
[2016-10-25 18:19] LABS: PT Patient Result 11.1 SECS
[2016-10-25 18:31] LABS: Lymphocytes 3 % (20-55); Platelet Estimate Adequate; Segmented Neutrophils 97 % (50-85); Total Cells Counted 100
[2016-10-25 18:36] LABS: Magnesium 1.1 MG/DL (1.8-2.4)
[2016-10-25 18:37] LABS: Troponin I Only 0.08 NG/ML (0.00-0.045)
[2016-10-25] MEDS ORDERED: cefTRIAXone 1,000 MG in SODIUM CHLORIDE 0.9% 100 ML IV STA (18:57)
[2016-10-25] MEDS ORDERED: cefTRIAXone 1,000 MG VIAL ONE (19:02)
[2016-10-25] MEDS ORDERED: SODIUM CHLORIDE 0.9% 100 ML IV ONE (19:02)
--- NOTE | 2016-10-25 19:42 | XRay Report ---
Exam: XR chest 2V Indication: Shortness of breath Comparison study: Prior chest radiograph of 09-25-16 Findings: Lungs are hyperexpanded but similar in appearance as compared to prior. The heart, mediastinum and bony structures are stable from prior. Right chest Mediport is in similar position. There is no focal consolidation, pneumothorax or pleural effusion identified. Focal soft tissue density in the region of the Mediport in the right lung apex is most compatible with the patient's known lung cancer. This appears slightly more conspicuous on the current study. Impression: Chronic hyperexpansion of the lungs and emphysematous changes appears similar to prior. No definite acute cardiac pulmonary process. Slight worsening of the right upper lobe soft tissue lesion likely representing residual/recurrent malignancy. Correlate with CT of the chest as needed. PROCEDURE INTERPRETED AT [facility] DEPARTMENT OF RADIOLOGY Final Report Signed by: Rylan Roman
[2016-10-25 19:49] LABS: Apearance,Urine CLEAR (Clear); Bilirubin,Urine Negative (Negative); Blood, Urine Negative (Negative); Glucose,Urine (UA) Negative (Negative); Ketones,Urine Negative (Negative); Mucus,Urine Occasional /LPF (Occasional); Nitrite,Urine Negative (Negative); Protein,Urine 30 MG/DL; RBC,Urine 1 /HPF (0-4); Urine Color Yellow (Yellow); Urine Specific Gravity 1.017 (1.001-1.035); Urine Urobilinogen < 2.0 EU/DL (0.2-1.0); WBC,Urine 2 /HPF (0-6)
[2016-10-25] MEDS ORDERED: MAGNESIUM SULF RIDER 2 GM in PREMIX 1 EACH IV STA (19:52)
[2016-10-25] MEDS ORDERED: LACTATED RINGERS 1,000 ML IV ONE (20:03)
[2016-10-25] MEDS ORDERED: MAGNESIUM SULF RIDER 50 ML IV ONE (20:05)
[2016-10-25 22:18] LABS: Albumin 3.2 G/DL (3.4-5.0); Bilirubin,Total 0.5 MG/DL (0.2-1.0); Calcium 8.1 MG/DL (8.5-10.1); Osmolality,Calculated 283.4 MOS/KG (273-304); Potassium 3.4 MMOL/L (3.5-5.1); Total Protein 5.4 G/DL (6.4-8.3)
[2016-10-25] MEDS ORDERED: POTASSIUM CHLORIDE 20 MEQ TABLET PO STA (22:58)
[2016-10-25] MEDS ORDERED: POTASSIUM CHLORIDE 20 MEQ TABLET PO ONE (23:09)
[2016-10-26] MEDS ORDERED: traMADol 50 MG TABLET PO PRN (00:56)
[2016-10-26] MEDS ORDERED: LOPERAMIDE 2 MG CAPSULE PO PRN ×2 (00:56)
[2016-10-26] MEDS ORDERED: SODIUM CHLORIDE 0.9% 1,000 ML IV SCH (00:56)
[2016-10-26] MEDS ORDERED: ONDANSETRON 4 MG/2 ML VIAL IV PRN (00:56)
[2016-10-26] MEDS ORDERED: ACETAMINOPHEN 325 MG TABLET PO PRN (00:56)
[2016-10-26] MEDS ORDERED: LACTULOSE 20 GM/30 ML UDCUP PO PRN (00:56)
[2016-10-26] MEDS ORDERED: guaiFENesin 200 MG/10 ML UDCUP PO PRN (00:56)
[2016-10-26] MEDS ORDERED: ALPRAZolam 0.25 MG TABLET PO PRN (00:56)
[2016-10-26] MEDS ORDERED: diphenhydrAMINE CAP 25 MG CAPSULE PO PRN (00:56)
[2016-10-26] MEDS ORDERED: MYLANTA/LIDO VISC 2:1 300 ML BOTTLE SWISH/SPIT PRN (00:56)
[2016-10-26] MEDS ORDERED: ALUMINUM/MAGNES/SIMETH MAX STR 30 ML UDCUP PO PRN (00:56)
[2016-10-26] MEDS ORDERED: MYLANTA/LIDO VISC 2:1 300 ML BOTTLE SWISH/SWAL PRN (00:56)
[2016-10-26] MEDS ORDERED: MAGNESIUM HYDROXIDE SUSP 30 ML UDCUP PO PRN (00:56)
[2016-10-26] MEDS: methylPREDNISolone SOD SUC 40 MG/1 ML VIAL IV SCH ×3 (01:23→17:47)
[2016-10-26] MEDS: ENOXAPARIN 40 MG/0.4 ML SYRINGE SUBCUT SCH (01:23)
[2016-10-26] MEDS: AZITHROMYCIN INJ 500 MG in SODIUM CHLORIDE 0.9% 250 ML IV SCH (01:45)
[2016-10-26 02:13] LABS: Basophils % 0.1 % (0.0-0.8); Hematocrit 31.9 VOL% (42.0-52.0); Hemoglobin 10.5 GM/DL (14.0-18.0); Immature Granulocytes % 0.5 %; Immature Granulocytes Absolute 0.05 #; Lymphocytes # 0.2 10*3/uL (1.4-4.0); Lymphocytes % 1.5 % (21.2-54.2); Mean Corpuscular HGB Conc 32.9 GM/DL (32-36); Mean Corpuscular Hemoglobin 31 PG (27-34); Mean Corpuscular Volume 92.7 FL (87-102); Mean Platelet Volume 8.5 FL (9.6-12.0); Monocytes # 0.1 10*3/uL (0.11-0.8); Monocytes % 1.2 % (1.7-12.7); Neutrophils # 10.3 10*3/uL (1.4-7.4); Neutrophils % 96.7 % (38.7-73.9); Platelet Count 249 T/CUMM (130-400); Red Blood Count 3.44 MC/CUMM (3.8-5.5); Red Cell Distribution Width 13.3 % (9.3-17.3); White Blood Count 10.7 T/CUMM (4-12)
[2016-10-26 02:36] LABS: Lymphocytes 1 % (20-55); Segmented Neutrophils 99 % (50-85)
[2016-10-26 02:38] LABS: Platelet Estimate Normal; Total Cells Counted 100
[2016-10-26 03:05] LABS: Albumin 3.2 G/DL (3.4-5.0); Bilirubin,Total 0.8 MG/DL (0.2-1.0); Calcium 7.8 MG/DL (8.5-10.1); Magnesium 1.6 MG/DL (1.8-2.4); Osmolality,Calculated 283.4 MOS/KG (273-304); Potassium 3.3 MMOL/L (3.5-5.1); Total Protein 5.3 G/DL (6.4-8.3)
[2016-10-26 03:07] LABS: CKMB % 6.9 %
[2016-10-26 03:14] LABS: Troponin I Only 0.09 NG/ML (0.00-0.045)
[2016-10-26] MEDS: PANTOPRAZOLE 40 MG VIAL IV SCH (08:51)
[2016-10-26] MEDS ORDERED: DIPHENOXYLATE/ATROPINE 2.5-0.025 MG TABLET PO PRN (08:55)
--- NOTE | 2016-10-26 08:58 | Oncology History&Physical ---
Assessment and Plan (1) Squamous cell carcinoma of lung, stage IV Status: Acute Assessment and plan: We will consult with home hospice today with plans to proceed with best supportive care only with discontinuation of any further chemotherapy or immunotherapy Current Visit: Yes History of Present Illness Chief complaint: Shortness of breath History of present illness: Mr. Abdirashid Patton is a 61 year old male With greater than 2 year history of stage IV bilateral squamous cell carcinoma of the lung. The patient has received multiple lines of prior cytotoxic chemotherapy and has most recently received immunotherapy with Depo for an extended interval. Over the last 2 months he has had weight loss and increasing chest pain. We have actually irradiated bilateral chest wall metastases in the past. He has continued to smoke and has findings consistent with emphysema. His last treatment was approximately 4 weeks ago. He is also reporting left foot edema. He has a history of atrial tachycardia with both metoprolol and Cardizem and Eliquis listed on his home medication profile. He is hypotensive and somewhat overmedicated at present in my opinion and I have made adjustments. I have talked to him regarding DO NOT RESUSCITATE, home hospice and further plans for best supportive care only. Home Medications Medication Instructions Recorded Confirmed Type Albuterol Sulfate [Ventolin HFA] 2 puff INH Q4-6H PRN 02/16/15 10/26/16 History HYDROcodone/ACETAMIN 10-325 [[place] 1 tablet PO Q4H PRN 02/16/15 10/26/16 History 10-325] Magnesium Oxide [Magox 400] 400 mg PO DAILY 02/16/15 10/26/16 History Diltiazem Cd Cap [Cardizem CD] 120 mg PO BID #60 capsule 07/31/15 10/26/16 Rx Apixaban [Eliquis] 5 mg PO BID 03/16/16 10/26/16 History Digoxin Tab [Lanoxin Tab] 0.125 mg PO DAILY 03/16/16 10/26/16 History Metoprolol Tartrate 50 mg PO DAILY 03/16/16 10/26/16 History Diphenoxylate/Atrop 2.5-0.025 1 tablet PO Q4HR PRN #15 tablet 09/27/16 10/26/16 Rx [Lomotil Tab] MDD 4 TABLET/24H fentaNYL 50 MCG/HR PATCH 1 patch TRANSDERM Q3DAY 10/25/16 10/26/16 History [Duragesic 50 Patch] predniSONE TAB [PredniSONE] 40 mg PO DAILY 10/25/16 10/26/16 History Allergies Allergy/AdvReac Type Severity Reaction Status Date / Time No Known Allergies Allergy Verified 10/25/16 16:35 Medical,Surgical,& Family Hx - Medical History Cardio: History of: Cardiac Dysrhythmia (a-fib), Hypertension Respiratory: History of: Lung Cancer (stage IV Sq Cell CA of lung) Gastrointestinal: History of: GI Problems (diarrhea, chronic) - Surgical History Thoracic Surgeries: Patient denies;: Organ Transplant Neurologic Surgeries: Patient denies: Neurologic Surgery Abdominal Surgeries: Patient denies: Abdominal Surgery Reproductive Surgeries: Patient denies;: Genitourinary Surgery - Social History Smoking Status: Current every day smoker Frequency of Alcohol Use: None Type of Drug Use: None - Constitutional Constitutional: Present: fatigue. Absent: fever(s) - EENT Eye: Absent: blurry vision Ears: Absent: decreased hearing Nose, mouth and throat: Absent: dysphagia, epistaxis - Cardiovascular Cardiovascular ROS IM: Present: chest pain. Absent: palpitations - Respiratory Respiratory: Present: dyspnea. Absent: hemoptysis - Gastrointestinal Gastrointestinal: Present: early satiety. Absent: hematemesis Exam - Constitutional Vitals: Period Temp Pulse Resp BP Sys/[place] Pulse Ox Last 24 Hr 98.2 F-99.0 F 86-114 18-23 82-102/50-73 94-98 General appearance: no acute distress, cachectic - Head Head Exam: Present: atraumatic - Eye Eye Exam: Present: EOMI. Absent: conjunctival injection, periorbital swelling, scleral icterus - ENT ENT exam: Present: normal external ear exam - Neck Neck exam: Absent: lymphadenopathy, thyromegaly - Respiratory Respiratory exam: Present: decreased breath sounds. Absent: accessory muscle use, chest wall tenderness - Cardiovascular Cardiovascular exam: Present: RRR. Absent: systolic murmur - Neurological Exam Neurological exam: Present: alert, oriented X3 - Psychiatric Psychiatric exam: Present: normal affect, normal mood Results - Labs CBC & BMP: 10/26/16 01:47 10/26/16 01:47
[2016-10-26] MEDS: METOPROLOL TARTRATE 50 MG TABLET PO SCH (09:37)
[2016-10-26] MEDS: MAGNESIUM OXIDE 400 MG TABLET PO SCH (09:37)
[2016-10-26] MEDS: DIGOXIN 0.125 MG TABLET PO SCH (09:37)
--- NOTE | 2016-10-26 10:05 | XRay Report ---
XR chest 2V Indication: SOB Comparison: Chest x-ray dated October 25, 2016 Technique: Frontal and lateral views of the chest. Findings: The cardiomediastinal silhouette is stable in configuration. Mediport catheter appears grossly unchanged. Chronic/emphysematous change of the lungs. Irregular density again projects over the right upper lung in the region of the cuff of the port catheter which is consistent with patient history of malignancy. No focal consolidation, pleural effusion, or pneumothorax otherwise. Visualized osseous and surrounding soft tissue structures appear grossly unchanged. IMPRESSION: No adverse interval change. Chronic/emphysematous change of the lungs. Irregular density again projects over the right upper lung in the region of the cuff of the port catheter which is consistent with patient history of malignancy. PROCEDURE INTERPRETED AT [facility] DEPARTMENT OF RADIOLOGY Final Report Signed by: Dr Omar Godinez
[2016-10-26] MEDS: ALBUTEROL/IPRATROPIUM 3 ML NEB RESP TX PRN (14:04)
[2016-10-26] MEDS ORDERED: HEPARIN LOCK FLUSH 500 UNIT/5 ML SYRINGE IV ONE (17:29)
[2016-10-26] MEDS ORDERED: fentaNYL 50 MCG/HR PATCH TRANSDERM SCH (18:00)
[2016-10-26] MEDS ORDERED: cefTRIAXone 1,000 MG in SODIUM CHLORIDE 0.9% 100 ML IV SCH (21:00)
[2016-10-26] MEDS: TEMAZEPAM 7.5 MG CAPSULE PO PRN (21:58)
[2016-10-27] MEDS: ENOXAPARIN 40 MG/0.4 ML SYRINGE SUBCUT SCH (00:08)
[2016-10-27] MEDS: TEMAZEPAM 7.5 MG CAPSULE PO PRN (00:08)
[2016-10-27] MEDS: AZITHROMYCIN INJ 500 MG in SODIUM CHLORIDE 0.9% 250 ML IV SCH (02:12)
[2016-10-27] MEDS: methylPREDNISolone SOD SUC 40 MG/1 ML VIAL IV SCH ×2 (02:14→09:05)
[2016-10-27 08:08] VITALS: BP 94/57
[2016-10-27] MEDS ORDERED: HEPARIN LOCK FLUSH 500 UNIT/5 ML SYRINGE IV ONE (08:36)
[2016-10-27] MEDS: METOPROLOL TARTRATE 50 MG TABLET PO SCH (08:37)
[2016-10-27] MEDS: DIGOXIN 0.125 MG TABLET PO SCH (08:37)
[2016-10-27] MEDS: MAGNESIUM OXIDE 400 MG TABLET PO SCH (08:37)
[2016-10-27] MEDS: PANTOPRAZOLE 40 MG VIAL IV SCH (08:38)
[2016-10-27] MEDS: ALBUTEROL/IPRATROPIUM 3 ML NEB RESP TX PRN (08:39)
--- NOTE | 2016-10-27 09:05 | Discharge Summary ---
Hospital Course - Hospital Course Hospital Course: Patient with approximately 2-1/2 year history of stage IV squamous cell carcinoma of the lung with multiple lines of prior therapy. Admitted with chest pain and dyspnea. The patient has continued to use tobacco products during his cancer treatment. Notable events include radiographic progression on CT scan and clinical deterioration with progressive dyspnea, weight loss and fatigue. Best supportive care with home hospice was discussed with the patient and agreed upon. He does have a history of atrial tachycardia and given his weakened condition I am going to decrease his rate control medications and discontinue anticoagulation. Plans are for discharge home with hospice today with supportive care Diagnosis - Discharge Diagnosis (1) Squamous cell carcinoma of lung, stage IV Status: Acute Discharge Plan - Discharge Medications New HYDROcodone/ACETAMIN 10-325 [[place] 10-325] 1 tablet PO Q4H PRN tablet PRN Reason: Pain Moderate (4-7) Continue HYDROcodone/ACETAMIN 10-325 [[place] 10-325] 1 tablet PO Q4H PRN PRN Reason: Pain Magnesium Oxide [Magox 400] 400 mg PO DAILY Albuterol Sulfate [Ventolin HFA] 2 puff INH Q4-6H PRN PRN Reason: Shortness Of Breath Metoprolol Tartrate 50 mg PO DAILY Digoxin Tab [Lanoxin Tab] 0.125 mg PO DAILY fentaNYL 50 MCG/HR PATCH [Duragesic 50 Patch] 1 patch TRANSDERM Q3DAY predniSONE TAB [PredniSONE] 40 mg PO DAILY Discontinued Diltiazem Cd Cap [Cardizem CD] 120 mg PO BID #60 capsule Apixaban [Eliquis] 5 mg PO BID Diphenoxylate/Atrop 2.5-0.025 [Lomotil Tab] 1 tablet PO Q4HR PRN #15 tablet MDD 4 TABLET/24H PRN Reason: Diarrhea - Follow Up or Referral - Forms/Instructions Exam - Constitutional Vitals: Period Temp Pulse Resp BP Sys/[place] Pulse Ox Last 24 Hr 98.1 F-99.1 F 69-107 16-20 81-94/53-59 90-98 Discharge Results Procedures and tests throughout hospitalization: Pending Orders 10/25/16 19:25 Blood Culture Stat 10/26/16 00:56 Urinalysis Routine Labs on day of discharge: Preliminary micro results at discharge 10/25/16 19:25 Blood Culture - Preliminary Blood No growth at 1 day 10/25/16 17:55 Blood Culture - Preliminary Blood No growth at 1 day DS: Provider Date of admission: 10/26/16 00:06 Primary care physician: Villa Garrison MD Attending physician on admission: Villa Garrison MD Consults: 10/26/16 00:56 Consult to Case Mgmt/Social Srvs [CONS] Routine Reason for Case Mgmt/Social Srvs: Rehab Hospice Referral 10/26/16 01:35 Consult to Dietitian [CONS] Routine Reason for Dietitian: Dietary Consult Discharging clinician: Villa Garrison MD
--- NOTE | 2016-10-28 10:28 | Physician Query Form ---
CLICK EDIT DOCUMENT TO SELECT QUERY ANSWER --> OK --> SIGN Yelitza Snow RN, CCDS Certified Clinical Transport Coordinator W) [phone] (f) [phone] [email or web address] PROVIDERS: Make your selection(s) from the choices in EACH section by typing an "x" and enter comments in the comment section. Please use your independent medical judgment in providing your response. This request does not imply that any particular answer is desired or expected. 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 18.8% of body weight over past 14 months", and "[facility] Boost all meals". Based on the above, which following choice most accurately represents the patient's nutritional status? (x ) Malnutrition ( ) mild ( ) moderate (x ) severe ( ) Protein calorie malnutrition ( ) mild ( ) moderate ( ) severe ( ) Emaciation due to malnutrition ( ) Nutritional marasmus ( ) Cachexia ( ) Underweight ( ) No nutritional deficiency ( ) Other, please specify: ( ) Clinically unable to determine Mild Malnutrition (BMI < 18.5, % Normal Body Weight 85-95%) Moderate Malnutrition (BMI < 17, % Normal Body Weight 75-85%) Severe Malnutrition (BMI < 16, % Normal Body Weight < 75%) Source: [place] COMMENTS: PLEASE ALSO DOCUMENT RESPONSE IN PROGRESS NOTES AND/OR DISCHARGE SUMMARY Use of terms such as suspected, likely, or probable (associated with a specific diagnosis that is being evaluated, monitored, or treated as if it exists) are acceptable and can be restated in the discharge summary if not ruled out. MTDD
== END 2016-10-27 09:44 | disposition hospice, home (50) | DRG 180 ==
LOC: N.ED 16:23 → N.4E 10-26 00:06
PROVIDERS: ADMIT Specialist; ATTEND Specialist